=== PATIENT | male | born 1980 | race African-American/Black ===

== ENCOUNTER 2016-10-25 11:27 | Emergency (ER) | payer OTHER ==
[2016-10-25] VITALS (9 sets, daily range): BP systolic 125–160; BP diastolic 71–98
[~2016-10-25] VITALS: Ht 188 cm; Wt 90.7 kg
[2016-10-25] MEDS ORDERED: Tetracaine 0.5% Opth Soln BOTH EYES STA (11:32)
[2016-10-25] MEDS ORDERED: Midazolam 2mg/2ml Inj IM ONE (11:45)
[2016-10-25 13:51] LABS: BASOPHILS % (AUTO) 1.1 % (0.0-2.0); EOSINOPHILS % (AUTO) 0.6 % (0.0-3.0); LYMPHOCYTES % (AUTO) 22.1 % (20.0-45.0); MEAN CORPUSCULAR HEMOGLOBIN 23.5 PG (27.0-31.0); MEAN CORPUSCULAR HGB CONC 29.6 G/DL (32.0-36.0); MEAN CORPUSCULAR VOLUME 79 FL (80-99); MEAN PLATELET VOLUME 6.2 FL (6.5-10.1); MONOCYTES % (AUTO) 9.5 % (1.0-10.0); NEUTROPHILS % (AUTO) 66.7 % (45.0-75.0); PLATELET COUNT 294 K/UL (150-450); RED BLOOD COUNT 5.36 M/UL (4.70-6.10); RED CELL DISTRIBUTION WIDTH 12.9 % (11.6-14.8)
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
[2016-10-25 14:16] LABS: ALANINE AMINOTRANSFERASE 27 U/L (3-41); ALBUMIN/GLOBULIN RATIO 1.9 (1.0-2.7); ANION GAP 12 (5-15); ASPARTATE AMINO TRANSFERASE 20 U/L (5-40); CALCIUM 9.5 mg/dL (8.6-10.2); CARBON DIOXIDE 26 mEQ/L (20-30); CHLORIDE 103 mEQ/L (98-107); CREATININE 1.2 mg/dL (0.7-1.2); GLOMERULAR FILTRATION RATE > 60 mL/min (>60); HEMOLYSIS 2; POTASSIUM 4.3 mEQ/L (3.4-4.9); SODIUM 141 mEQ/L (135-145); TOTAL PROTEIN 7.1 g/dL (6.6-8.7)
== END 2016-10-25 14:46 ==
LOC: EDBD 11:27 → EMR 12:40
DX: T59.3X4A Toxic effect of lacrimogenic gas, undetermined, initial encounter (principal); R41.0 Disorientation, unspecified; Z02.89 Encounter for other administrative examinations; F15.10 Other stimulant abuse, uncomplicated; F17.200 Nicotine dependence, unspecified, uncomplicated; Y35.893A Legal intervention involving other specified means, suspect injured, initial encounter; Y92.9 Unspecified place or not applicable
CPT/HCPCS: 36415; 80053; 80300; 82550; 85025; 96372; 99283; J2250